=== PATIENT | female | born 1990 | race Caucasian/White ===

== ENCOUNTER 2020-06-04 10:18 | Inpatient (IN) | payer OTHER ==
[2020-06-04] MEDS ORDERED: ELECTROLYTE-148 SOLN 1,000 ML IV SCH ×2 (10:30→11:00)
[2020-06-04] MEDS ORDERED: CITRIC ACID/SODIUM CITRATE 30 ML UNIT-DOSE CUP PO ONE (10:30)
[2020-06-04 10:58] VITALS: BMI 38.4
[2020-06-04] MEDS ORDERED: SUCCINYLCHOLINE CHLORIDE 200 MG/10 ML SYRINGE ONE (12:01)
[2020-06-04] MEDS ORDERED: ePHEDrine SULFATE 50 MG/1 ML AMPULE ONE (12:01)
[2020-06-04] MEDS ORDERED: morphine SULFATE/PF 0.5 MG/ML (2cc Syringe - QUVA) ONE (12:01)
[2020-06-04] MEDS ORDERED: PROPOFOL 20 ML ONE (12:01)
[2020-06-04] MEDS ORDERED: OXYTOCIN 20 UNITS in 0.9% NS 20 UNIT/1,000 ML INFUS.BAG IV ONE ×2 (12:06→14:54)
[2020-06-04] MEDS ORDERED: PHENYLEPHRINE HCL 10 MG/1 ML SINGLE DOSE VIAL ONE (12:47)
[2020-06-04] MEDS ORDERED: OXYTOCIN 10 UNITS/ML VIAL ONE (12:47)
[2020-06-04] MEDS ORDERED: CLINDAMYCIN PHOSPHATE 600 MG/4 ML VIAL ONE (12:47)
[2020-06-04] MEDS ORDERED: KETOROLAC TROMETHAMINE 30 MG/1 ML VIAL ONE (12:47)
[2020-06-04] MEDS ORDERED: ONDANSETRON 4 MG/2 ML VIAL ONE ×2 (12:47→13:23)
[2020-06-04 13:59] LABS: CORD HCO3 31.6 mmHg (20-29); CORD PCO2 83.2 mmHg (30-78); CORD pH 7.197 (7.14-7.44)
[2020-06-04 14:03] LABS: CORD BASE EXCESS -2.3 mmol/L (0-2); CORD HCO3 24.9 mmHg (20-29); CORD PCO2 51.5 mmHg (30-78); CORD pH 7.303 (7.14-7.44)
[2020-06-04] MEDS ORDERED: METHYLERGONOVINE MALEATE 0.2 MG/1 ML AMP IM PRN (14:03)
[2020-06-04] MEDS ORDERED: IBUPROFEN 600 MG TABLET (FP) PO PRN (14:03)
[2020-06-04] MEDS ORDERED: ONDANSETRON 4 MG/2 ML VIAL IVPUSH PRN (14:06)
[2020-06-04] MEDS ORDERED: KETOROLAC TROMETHAMINE 30 MG/1 ML VIAL IM PRN (14:29)
[2020-06-04] MEDS ORDERED: oxyCODONE HCL 5 MG TABLET PO PRN (14:31)
[2020-06-04] MEDS ORDERED: OXYTOCIN 20 UNITS in 0.9% NS 20 UNIT/1,000 ML INFUS.BAG IV SCH (14:45)
[2020-06-04] MEDS: CLINDAMYCIN 600MG PREMIX IVPB 600 MG/50 ML BAG IVPB SCH (17:37)
[2020-06-04] MEDS: DOCUSATE SODIUM 100 MG CAPSULE (FP) PO SCH (22:10)
[2020-06-05] MEDS: CLINDAMYCIN 600MG PREMIX IVPB 600 MG/50 ML BAG IVPB SCH ×2 (02:04→09:40)
[2020-06-05 09:09] LABS: BASO % 0.2 % (0-2.0); EOS % 0.3 % (0-4.5); HEMATOCRIT 24.9 % (32.4-45.2); HEMOGLOBIN 7.9 GM/dL (10.7-15.3); LYMPH % 13.3 % (8-40); MCH 27.9 pg (25.7-33.7); MCHC 31.6 g/dl (32.0-36.0); MEAN CELL VOLUME 88.4 fl (80-96); MEAN PLT VOLUME 9.1 fl (7.5-11.1); MONO % 5.9 % (3.8-10.2); NEUT % 80.3 % (42.8-82.8); PLATELET COUNT 186 K/MM3 (134-434); RBC 2.81 M/mm3 (3.60-5.2); RDW 14.4 % (11.6-15.6); WHITE BLOOD COUNT 8.2 K/mm3 (4.0-10.0)
[2020-06-05] MEDS: DOCUSATE SODIUM 100 MG CAPSULE (FP) PO SCH ×2 (09:45→22:20)
[2020-06-05] MEDS ORDERED: FLU VACCINE (FLULAVAL) PF 60 MCG/0.5 ML SYRINGE 2020-2021 IM ONE (10:00)
[2020-06-05] MEDS: SIMETHICONE 80 MG TAB.CHEW (FP) PO PRN ×2 (11:56→22:20)
[2020-06-05] MEDS: PRENATAL VITAMINS W/ FOLIC ACID TABLET (FP) PO SCH (12:42)
[2020-06-05] MEDS ORDERED: BISACODYL 10 MG SUPP.RECT RC PRN (14:05)
[2020-06-05] MEDS: FERROUS SO4 325 MG TABLET (FP) PO SCH (17:42)
[2020-06-05] MEDS: IBUPROFEN 600 MG TABLET (FP) PO PRN (22:20)
[2020-06-06] MEDS: FERROUS SO4 325 MG TABLET (FP) PO SCH ×2 (08:46→17:55)
[2020-06-06] MEDS: ACETAMINOPHEN 325 MG TABLET (FP) PO PRN ×2 (08:46→17:56)
[2020-06-06] MEDS: IBUPROFEN 600 MG TABLET (FP) PO PRN ×2 (08:46→17:55)
[2020-06-06] MEDS: PRENATAL VITAMINS W/ FOLIC ACID TABLET (FP) PO SCH (09:10)
[2020-06-06] MEDS: DOCUSATE SODIUM 100 MG CAPSULE (FP) PO SCH ×2 (09:10→23:12)
[2020-06-06 10:29] LABS: BASO % 0.2 % (0-2.0); EOS % 0.9 % (0-4.5); HEMATOCRIT 21.3 % (32.4-45.2); LYMPH % 15.4 % (8-40); MCH 28.9 pg (25.7-33.7); MEAN CELL VOLUME 87.6 fl (80-96); MEAN PLT VOLUME 8.6 fl (7.5-11.1); MONO % 6.3 % (3.8-10.2); NEUT % 77.2 % (42.8-82.8); PLATELET COUNT 193 K/MM3 (134-434); RBC 2.43 M/mm3 (3.60-5.2); RDW 14.1 % (11.6-15.6)
[2020-06-06] MEDS: SIMETHICONE 80 MG TAB.CHEW (FP) PO PRN ×2 (17:55→23:12)
[2020-06-07] MEDS: IBUPROFEN 600 MG TABLET (FP) PO PRN (09:16)
[2020-06-07] MEDS: ACETAMINOPHEN 325 MG TABLET (FP) PO PRN (09:17)
[2020-06-07] MEDS: DOCUSATE SODIUM 100 MG CAPSULE (FP) PO SCH (09:18)
[2020-06-07] MEDS: FERROUS SO4 325 MG TABLET (FP) PO SCH (09:18)
[2020-06-07] MEDS: SIMETHICONE 80 MG TAB.CHEW (FP) PO PRN (09:18)
[2020-06-07] MEDS: PRENATAL VITAMINS W/ FOLIC ACID TABLET (FP) PO SCH (09:18)
[2020-06-07 09:52] VITALS: BP 113/74; PULSE 112; TEMP 98.2
[2020-06-07 10:21] LABS: BASO % 0.3 % (0-2.0); EOS % 1.8 % (0-4.5); HEMATOCRIT 21.7 % (32.4-45.2); LYMPH % 20.9 % (8-40); MCH 28.6 pg (25.7-33.7); MCHC 31.9 g/dl (32.0-36.0); MEAN CELL VOLUME 89.5 fl (80-96); MEAN PLT VOLUME 9.5 fl (7.5-11.1); MONO % 5.6 % (3.8-10.2); NEUT % 71.4 % (42.8-82.8); PLATELET COUNT 227 K/MM3 (134-434); RBC 2.42 M/mm3 (3.60-5.2); RDW 14.7 % (11.6-15.6); WHITE BLOOD COUNT 7.6 K/mm3 (4.0-10.0)
[2020-06-07 10:26] LABS: HEMOGLOBIN 6.9 GM/dL (10.7-15.3)
== END 2020-06-07 15:40 | disposition home or self-care (01) | DRG 540 ==
LOC: JLDR 10:18 → J3W 15:09
PROVIDERS: ADMIT Obstetrics & Gynecology; ATTEND Obstetrics & Gynecology
PROC: 10D00Z1 Extraction of Products of Conception, Low, Open Approach (ICD-10-PCS; principal; 2020-06-04)
PROC: 0UL70CZ Occlusion of Bilateral Fallopian Tubes with Extraluminal Device, Open Approach (ICD-10-PCS; 2020-06-04)
DX: O34.219 Maternal care for unspecified type scar from previous cesarean delivery (principal); Z3A.39 39 weeks gestation of pregnancy; Z37.0 Single live birth; Z30.2 Encounter for sterilization
CPT/HCPCS: 36415; 36600; 82803; 85025; 88302-TC; 88307-TC; G0008; Q2036